=== PATIENT | male | born 1975 ===

== ENCOUNTER 2020-11-25 00:43 | Emergency (ER) | payer SELFPAY ==
[~2020-11-25] VITALS: Ht 167.6 cm; Wt 90.9 kg
[2020-11-25 00:50] VITALS: BP 130/75
[2020-11-25] MEDS ORDERED: BACITRACIN ZINC OINT 500U/GM, 0.9 GM ONE (02:28)
== END 2020-11-25 02:34 | disposition home or self-care (01) ==
LOC: ED 01:00
DX: S00.411A Abrasion of right ear, initial encounter (principal); S09.8XXA Other specified injuries of head, initial encounter; R04.0 Epistaxis; M54.2 Cervicalgia; F10.120 Alcohol abuse with intoxication, uncomplicated; Y90.0 Blood alcohol level of less than 20 mg/100 ml; Y04.8XXA Assault by other bodily force, initial encounter; Y93.89 Activity, other specified; Y92.89 Other specified places as the place of occurrence of the external cause; Y99.8 Other external cause status
CPT/HCPCS: 70450; 70486; 72125; 99285